=== PATIENT | female | born 1990 | race Caucasian/White ===

== ENCOUNTER 2023-02-17 22:47 | Emergency (ER) | payer BC ==
[2023-02-17] MEDS ORDERED: fentaNYL 50 MCG/ML SDV IVPUSH ONE ×2 (23:17→23:34)
[2023-02-17] MEDS ORDERED: Naloxone 0.4 MG/ML SDV IVPUSH PRN ×2 (23:17→23:34)
[2023-02-17] MEDS ORDERED: Ondansetron 4 MG/2 ML SDV IVPUSH ONE (23:35)
[2023-02-17] MEDS ORDERED: Iopamidol 612 MG/ML 100 ML Bottle IVPUSH ONE (23:50)
[2023-02-17] MEDS ORDERED: Diatrizoate Meglumine/Diatrizoate Sodium 37% 30 ML Bottle PO ONE (23:50)
[2023-02-18 00:06] LABS: BASOPHILS ABSOLUTE AUTO 0.02 K/uL (0.00-0.20); BASOPHILS PERCENT AUTO 0.3 % (0.0-2.0); EOSINOPHILS PERCENT AUTO 1.3 % (0.0-5.0); HEMATOCRIT 41.6 % (34.0-46.0); HEMOGLOBIN 14.1 g/dL (11.7-15.5); LYMPHOCYTES PERCENT AUTO 25.7 % (10.0-50.0); MEAN CORPUSCULAR HEMOGLOBIN 29.9 pg (28.2-33.3); MEAN CORPUSCULAR HGB CONC 33.9 g/dL (31.7-36.0); MEAN CORPUSCULAR VOLUME 88.3 fL (84.0-98.0); MONOCYTES ABSOLUTE AUTO 0.61 K/uL (0.00-1.00); MONOCYTES PERCENT AUTO 7.8 % (2.0-14.0); NEUTROPHILS ABSOLUTE AUTO 5.05 K/uL (1.40-7.00); NEUTROPHILS PERCENT AUTO 64.9 % (45.0-80.0); PLATELET COUNT,PLT 253 K/uL (150-350); RED BLOOD CELL COUNT 4.71 M/uL (3.77-5.09); RED CELL DISTRIBUTION WIDTH 12.6 % (11.2-14.1); WHITE BLOOD CELL COUNT,WBC 7.8 K/uL (4.0-10.2)
[2023-02-18] MEDS ORDERED: fentaNYL 50 MCG/ML SDV IVPUSH ONE ×2 (00:08→01:35)
[2023-02-18] MEDS: Sodium Chloride 0.9% 10 ML Syringe FLUSH PRN ×2 (00:14→01:39)
[2023-02-18 00:22] LABS: ALANINE AMINOTRANSFERASE,ALT 19 U/L (12-78); ALBUMIN 3.6 g/dL (3.4-5.0); ALKALINE PHOSPHATASE 79 IU/L (46-116); ANION GAP 8.5 meq/L (7-15); ASPARTATE AMNIOTRANSFERASE,AST 16 U/L (15-37); BILIRUBIN TOTAL 0.3 mg/dL (0.2-1.0); BLOOD UREA NITROGEN,BUN 13 mg/dL (7-18); CALCIUM 9.3 mg/dL (8.5-10.1); CARBON DIOXIDE,CO2 24.5 mmol/L (21.0-32.0); CHLORIDE,CL 106 mmol/L (98-107); CREATININE 0.97 mg/dL (0.51-1.17); GLUCOSE RANDOM 117 mg/dL (70-99); POTASSIUM,K 4.2 mmol/L (3.5-5.1); PROTEIN TOTAL,TP 7.2 g/dL (6.4-8.2); SODIUM,NA 139 mmol/L (136-145)
[2023-02-18 00:27] LABS: ESTIMATED GFR 80 mL/min (>=60)
[2023-02-18] MEDS ORDERED: Sucralfate 1 GM Tab PO ONE (02:55)
== END 2023-02-18 03:38 | disposition home or self-care (01) ==
LOC: LL.ED 22:47
DX: K25.3 Acute gastric ulcer without hemorrhage or perforation (principal)
CPT/HCPCS: 36415; 74177; 80053; 85025; 85610; 96374; 96375; 96376; 99284; 99284-25; A9270-GY; J2405; J3010; J3490; Q9963; Q9967